=== PATIENT | male | born 1980 | race Caucasian/White ===

== ENCOUNTER 2021-08-12 09:10 | Emergency (ER) | payer MEDICAID ==
[~2021-08-12] VITALS: Ht 190.5 cm; Wt 82.0 kg
[~2021-08-12 09:10] MED LIST: ONDA8TAB13 PO
[2021-08-12 09:18] VITALS: BP 121/79
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
--- NOTE | 2021-08-12 10:23 | NUR ---
PATIENT WAS SEEN PER DR. SEGURA AND THEN DECIDED TO LEAVE AMA. PATIENT IS AWARE OF THE RISKS AND CONSEQUENCES OF LEAVING WITHOUT MEDICAL WORK-UP/EVALUATION COMPLETED. DEPARTED AMBULATORY FROM ER.
== END 2021-08-12 10:28 | disposition left against medical advice (07) ==
LOC: ER 09:11
DX: S09.90XA Unspecified injury of head, initial encounter (principal); Z88.8 Allergy status to other drugs, medicaments and biological substances; Z79.899 Other long term (current) drug therapy; Y04.8XXA Assault by other bodily force, initial encounter; Y93.89 Activity, other specified; Y92.89 Other specified places as the place of occurrence of the external cause; Y99.8 Other external cause status
CPT/HCPCS: 99281